=== PATIENT | female | born 1985 | race Caucasian/White ===

== ENCOUNTER 2018-04-15 13:34 | Outpatient (CLI) | payer SELFPAY | END 2018-04-15 14:55 | disposition home or self-care (01) | LOC: OBT 13:34 → L-D 13:34 → OBT 14:55 | DX: O36.8130 Decreased fetal movements, third trimester, not applicable or unspecified (principal); Z3A.35 35 weeks gestation of pregnancy | CPT/HCPCS: 76818 ==

== ENCOUNTER 2018-05-07 08:07 | Inpatient (IN) | payer SELFPAY ==
[2018-05-07] MEDS ORDERED: MISOPROSTOL 200 MCG TAB PR (08:30)
[2018-05-07] MEDS ORDERED: CARBOPROST 250 MCG INJ IM (08:30)
[2018-05-07] MEDS ORDERED: IBUPROFEN 600 MG TAB PO (08:30)
[2018-05-07] MEDS ORDERED: METHYLERGONOVINE 0.2 MG INJ IM (08:30)
[2018-05-07] MEDS ORDERED: BUTORPHANOL 2 MG INJ IV (08:30)
[2018-05-07] MEDS ORDERED: OXYTOCIN 30 UNITS/LR 500 ML IV ×2 (08:30)
[2018-05-07] MEDS: LACTATED RINGER'S 1,000 ML IV* ×2 (09:00→12:46)
[2018-05-07 09:37] LABS: ADD MAN DIFF? NO
[2018-05-07 09:39] LABS: BASOPHILS % 0.2 % (0.0-2.0); EOSINOPHILS # 0.1 10^3/ul (0.0-0.5); EOSINOPHILS % 0.7 % (0.0-7.0); HEMOGLOBIN 12.1 g/dl (12.0-16.0); IMMATURE GRANS #M 0.06 10^3/ul; IMMATURE GRANS % (M) 0.6 %; LYMPHOCYTES # 1.9 10^3/ul (0.8-2.9); LYMPHOCYTES % 18.6 % (15.0-51.0); MEAN CORPUSCULAR HEMOGLOBIN 32.3 pg (29.0-33.0); MEAN CORPUSCULAR HGB CONC 34.6 g/dl (32.0-37.0); MEAN CORPUSCULAR VOLUME 93.3 fl (82.0-101.0); MEAN PLATELET VOLUME 11.6 fl (7.4-10.4); MONOCYTE # 0.6 10^3/ul (0.3-0.9); MONOCYTES % 5.8 % (0.0-11.0); NEUTROPHIL # 7.7 10^3/ul (1.6-7.5); NEUTROPHILS % 74.1 % (39.0-77.0); PLATELET COUNT 162 10^3/UL (140-415); RED BLOOD COUNT 3.75 10^6/ul (4.20-5.40); RED CELL DISTRIBUTION WIDTH 13.1 % (11.5-14.5)
[2018-05-07 09:39] LABS: WHITE BLOOD COUNT 10.4 10^3/ul (4.8-10.8)
[2018-05-07 09:58] LABS: INR 0.83; PROTIME 11.5 Sec (11.9-14.9); PT RATIO 0.9
[2018-05-07] MEDS: OXYTOCIN 30 UNITS/LR 500 ML IV (11:11)
[2018-05-07] MEDS ORDERED: FENTAnyl 2MCG/ML-ROPIV 0.2% 100 ML (13:08)
[2018-05-07] MEDS ORDERED: DIPHENHYDRAMINE 50 MG INJ IV (13:30)
[2018-05-07] MEDS ORDERED: NALOXONE (0.4 MG/ML) INJ IV (13:30)
[2018-05-07] MEDS: ACETAMINOPHEN 1000MG/100ML IV 100 ML IVPB (13:45)
[2018-05-07] MEDS: ONDANSETRON 4 MG INJ IV (15:24)
[2018-05-07] MEDS: DEXTROSE 5%-LR 1,000 ML IV ×2 (18:09→23:30)
[2018-05-07] MEDS: FENTAnyl 2MCG/ML-ROPIV 0.2% 100 ML BAG EPI (20:56)
[2018-05-07 21:45] LABS: RAPID PLASMA REAGIN NONREACTIVE (NR)
[2018-05-07] MEDS: MINERAL OIL LIGHT 10 ML VIAL TOP (23:00)
[2018-05-08] MEDS: ACETAMINOPHEN 500 MG TAB PO (00:09)
[2018-05-08] MEDS: FAMOTIDINE 20 MG INJ IV (00:10)
[2018-05-08] MEDS: LACTATED RINGER'S 1,000 ML IV* (00:30)
[2018-05-08] MEDS: LIDOCAINE 1% (MPF) 30 ML INJ INJ (00:46)
[2018-05-08] MEDS: OXYTOCIN 30 UNITS/LR 500 ML IV ×2 (00:52→05:02)
[2018-05-08] MEDS ORDERED: CARBOPROST 250 MCG INJ IM (01:00)
[2018-05-08] MEDS ORDERED: MISOPROSTOL 200 MCG TAB PR (01:00)
[2018-05-08] MEDS ORDERED: HYDROCODONE/APAP (5/325) TAB PO ×2 (01:00)
[2018-05-08] MEDS ORDERED: DIBUCAINE 1% 30 GM OINT PR (01:00)
[2018-05-08] MEDS ORDERED: METHYLERGONOVINE 0.2 MG INJ IM (01:00)
[2018-05-08] MEDS ORDERED: OXYTOCIN 30 UNITS/LR 500 ML IV (01:00)
[2018-05-08] MEDS ORDERED: ACETAMINOPHEN 325 MG TAB PO (01:00)
[2018-05-08] MEDS ORDERED: NACL 0.9% 3 ML SYG IV (01:00)
[2018-05-08] MEDS: WITCH HAZEL/GLYCERIN PAD PR (05:02)
[2018-05-08] MEDS: BENZOCAINE 20% 56 ML SPRAY TOP (05:02)
[2018-05-08] MEDS ORDERED: IBUPROFEN 600 MG TAB PO ×2 (06:00)
[2018-05-08 09:25] LABS: ADD MAN DIFF? NO
[2018-05-08 09:36] LABS: WHITE BLOOD COUNT 23.3 10^3/ul (4.8-10.8)
[2018-05-08 09:36] LABS: BASOPHILS % 0.2 % (0.0-2.0); EOSINOPHILS # 0.1 10^3/ul (0.0-0.5); EOSINOPHILS % 0.2 % (0.0-7.0); HEMATOCRIT 34.5 % (37.0-47.0); HEMOGLOBIN 11.9 g/dl (12.0-16.0); IMMATURE GRANS #M 0.16 10^3/ul; IMMATURE GRANS % (M) 0.7 %; LYMPHOCYTES # 2.1 10^3/ul (0.8-2.9); LYMPHOCYTES % 8.8 % (15.0-51.0); MEAN CORPUSCULAR HEMOGLOBIN 32.2 pg (29.0-33.0); MEAN CORPUSCULAR HGB CONC 34.5 g/dl (32.0-37.0); MEAN CORPUSCULAR VOLUME 93.5 fl (82.0-101.0); MEAN PLATELET VOLUME 11.6 fl (7.4-10.4); MONOCYTE # 1.1 10^3/ul (0.3-0.9); MONOCYTES % 4.9 % (0.0-11.0); NEUTROPHIL # 19.9 10^3/ul (1.6-7.5); NEUTROPHILS % 85.2 % (39.0-77.0); PLATELET COUNT 152 10^3/UL (140-415); RED BLOOD COUNT 3.69 10^6/ul (4.20-5.40); RED CELL DISTRIBUTION WIDTH 13.1 % (11.5-14.5)
== END 2018-05-09 07:50 | disposition home or self-care (01) | DRG 775 ==
LOC: PP1 05-08 02:23 → L-D 08:07 → PP1 05-08 20:15
PROVIDERS: Obstetrics & Gynecology
PROC: 3E033VJ Introduction of Other Hormone into Peripheral Vein, Percutaneous Approach (ICD-10-PCS; 2018-05-07 08:00)
DX: O70.0 First degree perineal laceration during delivery (principal); Z3A.39 39 weeks gestation of pregnancy; Z37.0 Single live birth
CPT/HCPCS: 62319; 85025; 85610; 85730; 86592; 86850; 86900; 86901